=== PATIENT | male | born 1990 | race Two or more races ===

== ENCOUNTER 2019-03-02 06:44 | Emergency (ER) | payer SELFPAY ==
[~2019-03-02] VITALS: Ht 167.6 cm; Wt 76.0 kg
[2019-03-02] MEDS ORDERED: IBUPROFEN 800MG TABLET PO ONE (07:15)
[2019-03-02] MEDS ORDERED: TRAMADOL 50MG TABLET PO ONE (09:00)
[2019-03-02 09:28] VITALS: BP 122/71
== END 2019-03-02 09:45 | disposition home or self-care (01) ==
LOC: ER 06:44
DX: S00.33XA Contusion of nose, initial encounter (principal); S09.90XA Unspecified injury of head, initial encounter; M54.2 Cervicalgia; Y04.0XXA Assault by unarmed brawl or fight, initial encounter; Y93.89 Activity, other specified; Y92.89 Other specified places as the place of occurrence of the external cause; Y99.8 Other external cause status
CPT/HCPCS: 70486; 99284